=== PATIENT | male | born 2005 | race Two or more races ===

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

== ENCOUNTER 2023-08-11 10:59 | Emergency (ER) | payer OTHER ==
[~2023-08-11] VITALS: Ht 182.9 cm; Wt 77.1 kg
== END 2023-08-11 19:33 | disposition home or self-care (01) ==
LOC: EMR PED 10:59 → ER 10:59 → EMR PED 14:48
DX: M17.11 Unilateral primary osteoarthritis, right knee (principal)